=== PATIENT | female | born 1995 | race Caucasian/White ===

== ENCOUNTER 2017-10-18 10:26 | Observation (INO) ==
[2017-10-18] MEDS ORDERED: Ondansetron ODT 4 MG TAB.RAPDIS SL ONE (11:27)
[2017-10-18 11:28] LABS: Amphetamine Screen,Urine Negative ng/mL (Cutoff=1000); Barbiturate Screen,Urine Negative ng/mL (Cutoff=200); Benzodiazepines Screen,Urine Negative ng/mL (Cutoff=200); Cannabinoid Screen,Urine Negative ng/mL (Cutoff = 50); Cocaine Screen,Urine Negative ng/mL (Cutoff= 300); Opiate Screen,Urine Negative ng/mL (Cutoff=300); Phencyclidine Screen,Urine Negative ng/mL (Cutoff=25)
[2017-10-18] MEDS ORDERED: Loratadine 10 MG TABLET PO SCH (12:45)
[2017-10-18] MEDS ORDERED: Albuterol 2.5 MG/3 ML NEBULIZER IH ONE (12:51)
[2017-10-18] MEDS ORDERED: GuaiFENesin Liq 200 MG/10 ML UDC PO PRN (12:52)
--- NOTE | 2017-10-18 12:57 | OB/GYN Progress Note ---
Date of Encounter: 10/18/17 Time of Encounter: 12:52 - Assessment and Plan (1) 32 weeks gestation of Current Visit: Yes Status: Acute admitted for observation (2) Chest congestion Current Visit: Yes Status: Acute Will start Claritin daily breathing treatment today (3) Decreased movement Current Visit: Yes Status: Acute Reactive nst Qualifiers: Fetus number: single or unspecified fetus Trimester: third trimester Qualified Code(s): O36.8130 - Decreased movements, third trimester, not applicable or unspecified (4) NST (non-stress test) reactive on surveillance Current Visit: Yes Status: Acute FHR baseline 140 bpm moderate variability +15x15 accels no decels noted. Cat. 1 tracing. Subjective - Subjective Principal diagnosis: decreased movement, cought and congestion Interval history: Patient is a 22 y/o at 32w2d presents to labor and delivery with complaints of decreased movement, cough and congestion,nausea and vomiting. Patient reports she has had cough and congestions for 2-3 weeks. Patient states she had tried cough medication and tylenol cold and has no relief. Patient reports she has been nauseated and last vomited this morning. Patient reports feeling movement however, movement is less than normal for her. Patient receives care with Dr. Houston. is complicated by short interval between pregnancies. Patient reports she had the Nexplanon and still got . Patient denies contractions, LOF or VB. Patient denies using tobacco or drug use. Antepartum ROS: no loss of fluid, no vaginal bleeding, no contractions Objective - Vital Signs Vital Signs: Intake and Output 10/17/17 10/18/17 10/18/17 23:59 07:59 15:59 Other: Weight 83 kg Patient Weight 10/18/17 23:59 Weight 83 kg - Exam FHR: auscultation normal, category 1 FHR comments: FHR 140 bpm moderate variability +15x15 accels no decels noted. Occasional contraction noted. Cat. 1 tracing Auscultation: bilateral: wheezes Abdomen: Present: normal appearance, soft, gravid Uterus: Present: normal
[2017-10-18 13:11] LABS: Bilirubin,Urine Negative (Negative); Blood,Urine Negative (Negative); Clarity,Urine Cloudy (Clear); Color,Urine Yellow (Yellow); Glucose,Urine (UA) Normal (Normal); Ketones,Urine Negative (Negative); Leukocyte Esterase,Urine Moderate (Negative); Nitrite,Urine Negative (Negative); PH,Urine 7.5 pH Units (5.0-8.0); Protein,Urine 30 mg/dL (Neg-Trace); Specific Gravity,Urine 1.006 (1.010-1.025); Urobilinogen,Urine Normal (Normal)
[2017-10-18 13:14] LABS: Bacteria,Urine Few per hpf (None-Few); Hyaline Casts,Urine None Seen per lpf (None-Few); Squamous Epithelial Cell,Urine Many per lpf (None-Few); WBC,Urine 30-50 per hpf (0-3)
--- NOTE | 2017-10-18 14:12 | Discharge Summary ---
Date of Encounter: 10/18/17 Time of Encounter: 14:11 - Discharge Diagnosis (1) 32 weeks gestation of Priority: Primary Status: Acute Comments: Patient reports feeling better discharge home follow up with Dr. Houston as scheduled. (2) Chest congestion Priority: Secondary Status: Acute (3) Decreased movement Priority: Secondary Status: Acute Qualifiers: Fetus number: single or unspecified fetus Trimester: third trimester Qualified Code(s): O36.8130 - Decreased movements, third trimester, not applicable or unspecified (4) NST (non-stress test) reactive on surveillance Priority: Secondary Status: Acute - Discharge Medications Prescriptions: Loratadine [Claritin] 10 mg PO DAILY #30 tablet Home Medications: Loratadine [Claritin] 10 mg PO DAILY #30 tablet 10/18/17 [Rx] Vit/Iron Fumarate/FA [ Tablet] 1 each PO DAILY 10/18/17 [ History] Allergies/Adverse Reactions: 3 Allergy/AdvReac Type Severity Reaction Status Date / Time Amoxicillin Allergy Hives Verified 10/18/17 10:55 Penicillins AdvReac Hives Verified 10/18/17 10:55 Data Procedures and tests throughout hospitalization: Laboratory Tests 10/18/17 10/18/17 11:04 12:46 Urine Color Yellow Urine Clarity Cloudy A Urine pH 7.5 Ur Specific [place] 1.006 L Urine Protein 30 H Urine Glucose (UA) Normal Urine Ketones Negative Urine Blood Negative Urine Nitrite Negative Urine Bilirubin Negative Urine Urobilinogen Normal Ur Leukocyte Esterase Moderate H Urine Microscopic RBC 3-5 H Urine Microscopic WBC 30-50 H Ur Squamous Epith Cells Many H Urine Bacteria Few Hyaline Casts None Seen Urine Opiates Screen Negative Ur Barbiturates Screen Negative Ur Phencyclidine Scrn Negative Ur Amphetamines Screen Negative U Benzodiazepines Scrn Negative Urine Cocaine Screen Negative U Marijuana (THC) Screen Negative Ur Drug Screen Interp See Below Labs on day of discharge: Labs from last 24 hours 10/18/17 10/18/17 12:46 11:04 Urine Color Yellow Urine Clarity Cloudy A Urine pH 7.5 Ur Specific [place] 1.006 L Urine Protein 30 H Urine Glucose (UA) Normal Urine Ketones Negative Urine Blood Negative Urine Nitrite Negative Urine Bilirubin Negative Urine Urobilinogen Normal Ur Leukocyte Esterase Moderate H Urine Microscopic RBC 3-5 H Urine Microscopic WBC 30-50 H Ur Squamous Epith Cells Many H Urine Bacteria Few Hyaline Casts None Seen Urine Opiates Screen Negative Ur Barbiturates Screen Negative Ur Phencyclidine Scrn Negative Ur Amphetamines Screen Negative U Benzodiazepines Scrn Negative Urine Cocaine Screen Negative U Marijuana (THC) Screen Negative Ur Drug Screen Interp See Below Date of admission: 10/18/17 10:26 Primary care physician: María Elena Peralta MD Discharging clinician: Arabella Chapin Anticipated date of discharge: 10/18/17 - Patient Status Disposition: Home, Self-Care Condition: Good Functional capacity at discharge: independent ambulation - Discharge Instructions Follow Up With: María Elena Peralta MD [Primary Care Provider] - Nicho Houston MD [Partnered Physician] - - Diet and Activity Activity: increase activity as tolerated Diet: regular diet Hospital Course [employer] Time Attestation: Total time spent providing and/or coordinating discharge services: Time Spent: Less than 30 minutes Exam - Constitutional Vitals: Resp Pulse Ox 16 100 10/18/17 13:04 10/18/17 13:04 General appearance IM: A&O X 3, pleasant, answers questions appropriately - Respiratory Respiratory exam: Present: CTAB - Cardiovascular Cardiovascular exam IM: Present: RRR, +S1, +S2 - Other Additional findings: FHR 145 bpm moderate variability, no contractions noted. - VTE Reasons for not Prescribing Prophylaxis: Treatment not Indicated - Low risk for VTE
== END 2017-10-18 14:20 | disposition home or self-care (01) ==
LOC: 1NENULAB
PROVIDERS: ADMIT Obstetrics & Gynecology; ATTEND Obstetrics & Gynecology

== ENCOUNTER 2017-11-12 07:38 | Observation (INO) ==
[2017-11-12 09:54] LABS: Bilirubin,Urine Negative (Negative); Blood,Urine Negative (Negative); Clarity,Urine Clear (Clear); Color,Urine Yellow (Yellow); Glucose,Urine (UA) Normal (Normal); Ketones,Urine Negative (Negative); Leukocyte Esterase,Urine Moderate (Negative); Nitrite,Urine Negative (Negative); Protein,Urine Trace mg/dL (Neg-Trace); RBC,Urine 0-3 per hpf (0-3); Specific Gravity,Urine 1.013 (1.010-1.025); Urobilinogen,Urine Normal (Normal); WBC,Urine 0-3 per hpf (0-3)
[2017-11-12 09:55] LABS: Bacteria,Urine Moderate per hpf (None-Few)
[2017-11-12 09:57] LABS: Amphetamine Screen,Urine Negative ng/mL (Cutoff=1000); Barbiturate Screen,Urine Negative ng/mL (Cutoff=200); Benzodiazepines Screen,Urine Negative ng/mL (Cutoff=200); Cannabinoid Screen,Urine Negative ng/mL (Cutoff = 50); Cocaine Screen,Urine Negative ng/mL (Cutoff= 300); Opiate Screen,Urine Negative ng/mL (Cutoff=300); Phencyclidine Screen,Urine Negative ng/mL (Cutoff=25)
--- NOTE | 2017-11-12 10:23 | OB/GYN Progress Note ---
Date of Encounter: 11/12/17 Time of Encounter: 10:20 - Assessment and Plan (1) Cramping complicating , antepartum Current Visit: Yes Status: Acute No change on serial cervical exams. UA sent for culture. Discharged home with labor and when to return to traige precautions. Encouraged resting and hydration at home. (2) Decreased movement Current Visit: Yes Status: Acute Reactive NST Qualifiers: Fetus number: single or unspecified fetus Trimester: third trimester Qualified Code(s): O36.8130 - Decreased movements, third trimester, not applicable or unspecified (3) NST (non-stress test) reactive on surveillance Current Visit: Yes Status: Acute Subjective - Subjective Interval history: presents to triage with complaints of cramping since early this morning, pt states frequent cramping sensations, reports a decrease in movement from baseline, but still has frequent movement except this morning which she has only felt the baby move a couple times. Denies vaginal bleeding or leaking of fluid, dysuria or urgency. Antepartum ROS: contractions, no loss of fluid, no vaginal bleeding, no movement normal Objective - Vital Signs Vital Signs: Intake and Output 11/11/17 11/12/17 11/12/17 23:59 07:59 15:59 Other: Weight 83 kg Patient Weight 11/12/17 23:59 Weight 83 kg - Exam FHR: auscultation normal FHR comments: reactive NST Abdomen: Present: soft, gravid Cervical dilation: 2/80/-3 - Labs Labs: Abnormal lab results Ur Leukocyte Esterase Moderate (Negative) H 11/12/17 09:12 Urine Bacteria Moderate per hpf (None-Few) H 11/12/17 09:12 Ur Culture Indicated? YES (NO) A 11/12/17 09:12
== END 2017-11-12 10:25 | disposition home or self-care (01) ==
LOC: 1NENULAB
PROVIDERS: ADMIT Obstetrics & Gynecology; ATTEND Obstetrics & Gynecology

== ENCOUNTER 2017-11-16 04:54 | Inpatient (IN) ==
[2017-11-16 02:24] LABS: Bilirubin,Urine Negative (Negative); Blood,Urine Negative (Negative); Clarity,Urine Clear (Clear); Color,Urine Yellow (Yellow); Glucose,Urine (UA) Normal (Normal); Ketones,Urine Negative (Negative); Leukocyte Esterase,Urine Trace (Negative); Nitrite,Urine Negative (Negative); Protein,Urine Negative (Neg-Trace); Specific Gravity,Urine 1.006 (1.010-1.025); Urobilinogen,Urine Normal (Normal)
[2017-11-16 02:30] LABS: Amphetamine Screen,Urine Negative ng/mL (Cutoff=1000); Barbiturate Screen,Urine Negative ng/mL (Cutoff=200); Benzodiazepines Screen,Urine Negative ng/mL (Cutoff=200); Cannabinoid Screen,Urine Negative ng/mL (Cutoff = 50); Cocaine Screen,Urine Negative ng/mL (Cutoff= 300); Opiate Screen,Urine Negative ng/mL (Cutoff=300); Phencyclidine Screen,Urine Negative ng/mL (Cutoff=25)
[2017-11-16 02:42] LABS: Bacteria,Urine Few per hpf (None-Few); Hyaline Casts,Urine None Seen per lpf (None-Few); Mucus,Urine Few (Few); RBC,Urine 0-3 per hpf (0-3); Squamous Epithelial Cell,Urine Few per lpf (None-Few); WBC,Urine 0-3 per hpf (0-3)
[~2017-11-16 04:54] MED LIST: *HR* Nalbuphine 10 MG/ML AMPUL IVP PRN; Famotidine 20 MG/2 ML VIAL IVP PRN; Lidocaine 1% 20 ML MDV ID PRN; Metoclopramide 10 MG/2 ML VIAL IVP PRN; Naloxone 0.4 MG/ML INJ IVP PRN; Ondansetron 4 MG/2 ML VIAL IVP PRN
[2017-11-16] MEDS ORDERED: Ringers Solution, Lactated 1,000 ML ONE (04:55)
[2017-11-16] MEDS ORDERED: ceFAZolin 1,000 MG in Water for inj. (sterile) 20 ML 10 ML IVP SCH (05:00)
[2017-11-16 05:29] LABS: Basophils % 0.3 %; Eosinophils # 0.2 K/mcL (0.0-0.6); Eosinophils % 1.3 %; Hematocrit 33.6 % (35.3-44.9); Hemoglobin 11.3 g/dL (11.5-15.4); Immature Granulocytes % 2.4 % (0-4); Lymphocytes % 23.8 %; Mean Corpuscular HGB Conc 33.6 g/dL (31.6-35.5); Mean Corpuscular Hemoglobin 26.6 pg (28.0-33.3); Mean Corpuscular Volume 79.1 fL (83.0-100.0); Mean Platelet Volume 10.4 fL (9.4-12.4); Monocytes % 7.6 %; Neutrophils # 8.2 K/mcL (1.6-8.9); Platelet Count 319 K/mcL (140-400); Red Blood Count 4.25 M/mcL (3.82-4.97); Red Cell Distribution Width 17.2 % (11.5-14.5); Segmented Neutrophils % 64.6 %
[2017-11-16] MEDS ORDERED: Oxytocin 20 units/ LR 1000 mL 20 UNIT/1,000 ML BAG IVC ONE ×2 (06:40→08:52)
--- NOTE | 2017-11-16 07:24 | OB/GYN Procedure Note ---
Delivery - Delivery Date: 11/16/17 Provider: Yahir Guerra Delivery induction: none Delivery monitor: external FHT, external uterine Anesthesia: none Quantitated Blood Loss: 100 - (s) Infant A Infant Delivery Date: 11/16/17 Infant Delivery Time: 07:08 Presentation: vertex Position: GIO Route of delivery: Gender: Male Viability: Viable Pounds: 6 Ounces: 5 Specimens collected: cord blood Placenta: spontaneous Cord: 3 umbilical vessels - Repair Episiotomy: none Laceration Description: None - Complications Delivery complications: none - Disposition Mom disposition: stable in LDR disposition: stable in LDR - Comments Comments: Pt s/p of liveborn male without complications. Spontaneous delivery of normal placenta with 3 vc. No laceration. Mother and delivered in recovery room.
[2017-11-16] MEDS ORDERED: Measles/Mumps/Rubella Vacc 0.5 ML VIAL SQ PRN (09:00)
[2017-11-16] MEDS ORDERED: Rho Immune Globulin 1,500 UNIT SYRINGE IM PRN (09:00)
[2017-11-16] MEDS ORDERED: Prenatal Vit/FA 1 EACH TABLET PO SCH (09:00)
[2017-11-16] MEDS ORDERED: Acetaminophen 325 MG TABLET PO PRN (09:00)
[2017-11-16] MEDS ORDERED: *HR* Promethazine 25 MG/ML VIAL IVP ONE (09:54)
[2017-11-16] MEDS ORDERED: *HR* Promethazine 25 MG/ML VIAL ONE (09:56)
[2017-11-16] MEDS: Ibuprofen 600 MG TABLET PO PRN ×2 (09:59→15:27)
[2017-11-16] MEDS: Oxytocin 20 units/ LR 1000 mL 20 UNIT/1,000 ML BAG IVC SCH (10:01)
[2017-11-17] MEDS: Ibuprofen 600 MG TABLET PO PRN ×2 (01:50→08:37)
[2017-11-17] MEDS: Oxytocin 20 units/ LR 1000 mL 20 UNIT/1,000 ML BAG IVC SCH (04:42)
[2017-11-17 05:22] VITALS: BP 95/67
[2017-11-17 07:08] LABS: Basophils # 0.1 K/mcL (0.0-0.2); Basophils % 0.4 %; Eosinophils # 0.1 K/mcL (0.0-0.6); Eosinophils % 1.1 %; Hematocrit 35.6 % (35.3-44.9); Hemoglobin 11.7 g/dL (11.5-15.4); Immature Granulocytes % 2.3 % (0-4); Lymphocytes # 3.2 K/mcL (0.6-4.6); Lymphocytes % 25.5 %; Mean Corpuscular HGB Conc 32.9 g/dL (31.6-35.5); Mean Corpuscular Hemoglobin 26.2 pg (28.0-33.3); Mean Corpuscular Volume 79.8 fL (83.0-100.0); Mean Platelet Volume 9.7 fL (9.4-12.4); Monocytes # 0.8 K/mcL (0.0-1.3); Monocytes % 6.6 %; Platelet Count 291 K/mcL (140-400); Red Blood Count 4.46 M/mcL (3.82-4.97); Segmented Neutrophils % 64.1 %
--- NOTE | 2017-11-17 09:11 | Discharge Summary ---
Date of Encounter: 11/17/17 Time of Encounter: 09:07 - Discharge Diagnosis (1) Vaginal delivery Priority: Primary Status: Acute Comments: Pain well controlled with by mouth pain meds Tolerating regular diet Ambulating independently Voiding independently Passing flatus, no BM yet Lochia light Discharge to guest today - Discharge Medications Prescriptions: Ibuprofen [Motrin] 600 mg PO Q6HR PRN #30 tablet PRN Reason: cramping Docusate [Colace] 100 mg PO BID #30 capsule Home Medications: Loratadine [Claritin] 10 mg PO DAILY #30 tablet 10/18/17 [Rx] Vit/Iron Fumarate/FA [ Tablet] 1 each PO DAILY 10/18/17 [ History] Acetaminophen [Tylenol] 650 mg PO Q6HR PRN tablet 11/17/17 [Rx] Docusate [Colace] 100 mg PO BID #30 capsule 11/17/17 [Rx] Ibuprofen [Motrin] 600 mg PO Q6HR PRN #30 tablet 11/17/17 [Rx] Allergies/Adverse Reactions: 3 Allergy/AdvReac Type Severity Reaction Status Date / Time Amoxicillin Allergy Hives Verified 10/18/17 10:55 Penicillins AdvReac Hives Verified 10/18/17 10:55 Data Procedures and tests throughout hospitalization: Laboratory Tests 11/16/17 11/16/17 11/16/17 02:01 02:01 02:55 WBC 12.7 H RBC 4.25 Hgb 11.3 L Hct 33.6 L MCV 79.1 L MCH 26.6 L MCHC 33.6 RDW 17.2 H Plt Count 319 MPV 10.4 Immature Gran % 2.4 Seg Neutrophils % 64.6 Lymphocytes % 23.8 Monocytes % 7.6 Eosinophils % 1.3 Basophils % 0.3 Neutrophils # 8.2 Lymphocytes # 3.0 Monocytes # 1.0 Eosinophils # 0.2 Basophils # 0.0 Urine Color Yellow Urine Clarity Clear Urine pH 7.0 Ur Specific [place] 1.006 L Urine Protein Negative Urine Glucose (UA) Normal Urine Ketones Negative Urine Blood Negative Urine Nitrite Negative Urine Bilirubin Negative Urine Urobilinogen Normal Ur Leukocyte Esterase Trace H Urine Microscopic RBC 0-3 Urine Microscopic WBC 0-3 Ur Squamous Epith Cells Few Urine Bacteria Few Hyaline Casts None Seen Urine Mucus Few Ur Culture Indicated? YES A Urine Opiates Screen Negative Ur Barbiturates Screen Negative Ur Phencyclidine Scrn Negative Ur Amphetamines Screen Negative U Benzodiazepines Scrn Negative Urine Cocaine Screen Negative U Marijuana (THC) Screen Negative Ur Drug Screen Interp See Below 11/17/17 06:36 WBC 12.4 H RBC 4.46 Hgb 11.7 Hct 35.6 MCV 79.8 L MCH 26.2 L MCHC 32.9 RDW 17.0 H Plt Count 291 MPV 9.7 Immature Gran % 2.3 Seg Neutrophils % 64.1 Lymphocytes % 25.5 Monocytes % 6.6 Eosinophils % 1.1 Basophils % 0.4 Neutrophils # 8.0 Lymphocytes # 3.2 Monocytes # 0.8 Eosinophils # 0.1 Basophils # 0.1 Urine Color Urine Clarity Urine pH Ur Specific [place] Urine Protein Urine Glucose (UA) Urine Ketones Urine Blood Urine Nitrite Urine Bilirubin Urine Urobilinogen Ur Leukocyte Esterase Urine Microscopic RBC Urine Microscopic WBC Ur Squamous Epith Cells Urine Bacteria Hyaline Casts Urine Mucus Ur Culture Indicated? Urine Opiates Screen Ur Barbiturates Screen Ur Phencyclidine Scrn Ur Amphetamines Screen U Benzodiazepines Scrn Urine Cocaine Screen U Marijuana (THC) Screen Ur Drug Screen Interp Labs on day of discharge: Labs from last 24 hours 11/17/17 06:36 WBC 12.4 H RBC 4.46 Hgb 11.7 Hct 35.6 MCV 79.8 L MCH 26.2 L MCHC 32.9 RDW 17.0 H Plt Count 291 MPV 9.7 Immature Gran % 2.3 Seg Neutrophils % 64.1 Lymphocytes % 25.5 Monocytes % 6.6 Eosinophils % 1.1 Basophils % 0.4 Neutrophils # 8.0 Lymphocytes # 3.2 Monocytes # 0.8 Eosinophils # 0.1 Basophils # 0.1 Preliminary micro results at discharge 11/16/17 02:01 Urine Culture - Preliminary Urine,Clean Catch No growth. Date of admission: 11/16/17 04:54 Primary care physician: PCP NONE Consults: 11/16/17 09:00 Consult to Cyber Instructor [CONS] Routine Comment: Vaginal delivery, consult needed Discharging clinician: Maria Esther Lan Anticipated date of discharge: 11/17/17 - Patient Status Disposition: Home, Self-Care Condition: Good Functional capacity at discharge: independent ambulation Overall status at discharge: patient is progressing back to baseline - Discharge Instructions Follow Up With: NONE,PCP [Primary Care Provider] - Nicho Houston MD [Partnered Physician] - - Diet and Activity Activity: increase activity as tolerated Diet: regular diet Hospital Course Procedures: Reason for admission: active labor, IUP - Delivery: Episiotomy: none Laceration: none Other procedures: none complications: none Discharge diagnosis: delivery baby: male Hospital course: Patient presented in active labor at 36 weeks 3 days gestation. She progressed rapidly to complete. She delivered a viable male with 0 lacerations. EBL was 100 mL. Infant was delivered by Dr. Guerra. Time Attestation: Total time spent providing and/or coordinating discharge services: Time Spent: Less than 30 minutes Exam - Constitutional Vitals: Temp Pulse Resp BP Pulse Ox 97.6 F 74 16 95/67 95 11/17/17 04:30 11/17/17 08:44 11/17/17 08:44 11/17/17 04:30 11/17/17 04:30 General appearance IM: A&O X 3 - Respiratory Respiratory exam: Present: CTAB - Cardiovascular Cardiovascular exam IM: Present: RRR, +S1, +S2 - GI/Abdominal GI/Abdominal exam IM: no peritoneal signs - Rectal Rectal exam: deferred - Uterine Tone: Firm Uterus Position: At Umbilicus, Midline - Extremities Exam Extremities exam IM: Present: pedal edema - Neurological Exam Neurological exam: alert, CN II-XII intact, normal gait, oriented X3, reflexes normal, no focal deficits, strengths equal and symetr throughout - Psychiatric Additional comments: Signs and symptoms of depression discussed with patient and she and her partner verbalizes understanding of when to seek help
== END 2017-11-17 10:30 | disposition home or self-care (01) | DRG 560 ==
LOC: 1NENULAB → 1NENUOBS 11:28
PROVIDERS: ADMIT Advanced Practice Midwife; ATTEND Advanced Practice Midwife